=== PATIENT | male | born 1990 | race Two or more races ===

== ENCOUNTER 2022-10-19 12:02 | Emergency (ER) | payer MEDICAID, OTHER ==
[~2022-10-19] VITALS: Ht 188 cm; Wt 89.0 kg
[2022-10-19 12:31] VITALS: BP 123/83
[2022-10-19] MEDS ORDERED: ACET-2708 MT (16:57)
[2022-10-19] MEDS ORDERED: CIPR500T5 MT (16:57)
[2022-10-19] MEDS ORDERED: LEVOFLOXACIN 500MG TABLET PO ONE (17:00)
[2022-10-19] MEDS ORDERED: CLOT15CR27 TP (17:02)
== END 2022-10-19 17:11 | disposition home or self-care (01) ==
LOC: ER 12:02
DX: L30.9 Dermatitis, unspecified (principal); L03.114 Cellulitis of left upper limb; L03.113 Cellulitis of right upper limb; L73.9 Follicular disorder, unspecified
CPT/HCPCS: 99283